=== PATIENT | male | born 1930 | race Caucasian/White ===

== ENCOUNTER → 2016-12-16 | Outpatient (CLI) | payer MEDICARE | END | disposition home or self-care (01) | LOC: CFH 09:59 | PROVIDERS: ATTEND Physician Assistant | DX: M51.27 Other intervertebral disc displacement, lumbosacral region (principal); M51.26 Other intervertebral disc displacement, lumbar region; M48.06 Spinal stenosis, lumbar region; M48.07 Spinal stenosis, lumbosacral region; M43.06 Spondylolysis, lumbar region; M71.38 Other bursal cyst, other site | CPT/HCPCS: 72148 ==

== ENCOUNTER 2017-01-20 09:19 | Inpatient (IN) | payer MEDICARE ==
[~2017-01-20] VITALS: Ht 185.4 cm; Wt 86.0 kg
[2017-01-20] MEDS ORDERED: SODIUM CHLORIDE 0.9% 1,000 ML IV ONE (09:38)
[2017-01-20] MEDS ORDERED: PANTOPRAZOLE 80 MG in SODIUM CHLORIDE 0.9% 50 ML IVPB ONE (09:38)
[2017-01-20 09:54] LABS: HEMOGLOBIN 13.7 g/dL (13.7-18.0); WHITE BLOOD COUNT 6.1 x10^3/uL (3.4-10)
[2017-01-20] MEDS ORDERED: SODIUM CHLORIDE 0.9% 1,000ML IVBOLUS ONE (10:00)
[2017-01-20] MEDS ORDERED: SODIUM CHLORIDE FLUSH 10ML SYR IVF ONE (10:00)
[2017-01-20 10:07] LABS: ASPARTATE AMINO TRANSFERASE 19 U/L (15-37); BLOOD UREA NITROGEN 20 mg/dL (7-18)
[2017-01-20] MEDS ORDERED: OMNIPAQUE 350 MG/ML, 100ML BOTTLE ONE (10:55)
[2017-01-20] MEDS ORDERED: antiacid PO (11:21)
[2017-01-20] MEDS ORDERED: AMLO1CAP6 PO (11:21)
[2017-01-20] MEDS ORDERED: cholesterol med PO (11:21)
[2017-01-20] MEDS: PANTOPRAZOLE 80 MG in SODIUM CHLORIDE 0.9% 100 ML IV SCH ×2 (11:51→13:56)
[2017-01-20] MEDS ORDERED: ACETAMINOPHEN 325 MG TABLET PO PRN (13:00)
[2017-01-20] MEDS ORDERED: POLYETHYLENE GLYCOL 17 GM PACKET PO PRN (13:00)
[2017-01-20] MEDS ORDERED: ONDANSETRON 2MG/ML, 2ML IVPush PRN (13:00)
[2017-01-20] MEDS ORDERED: LABETALOL 5MG/ML, 20ML IVPush PRN (13:00)
[2017-01-20] MEDS ORDERED: HYDROcodone/APAP 5/325 TABLET PO PRN (13:00)
[2017-01-20] MEDS ORDERED: BISACODYL 10 MG SUPP PR PRN (13:00)
[2017-01-20] MEDS ORDERED: DOCUSATE 100 MG CAPSULE PO PRN (13:00)
[2017-01-20 13:07] VITALS: BP 172/76
[2017-01-20] MEDS: SODIUM CHLORIDE 0.9% 1,000 ML IV SCH (13:32)
[2017-01-20] MEDS ORDERED: FENTANYL PF 100 MCG/2ML ONE (13:44)
[2017-01-20] MEDS ORDERED: MIDAZOLAM 1 MG/ML, 5ML ONE (13:44)
[2017-01-20] MEDS ORDERED: PANT20TA3 PO (16:49)
[2017-01-20] MEDS ORDERED: GOLYTELY 4,000ML ORAL.SOL PO ONE (18:00)
[2017-01-20 20:36] VITALS: BP 157/76
[2017-01-20] MEDS ORDERED: AMLODIPINE 5 MG TABLET PO SCH (21:00)
[2017-01-20] MEDS ORDERED: BENAZEPRIL 20 MG TABLET PO SCH (21:00)
[2017-01-21 00:39] LABS: HEMATOCRIT 35.1 % (39.2-51.8); HEMOGLOBIN 11.9 g/dL (13.7-18.0)
[2017-01-21] MEDS: SODIUM CHLORIDE 0.9% 1,000 ML IV SCH (02:22)
[2017-01-21 02:41] VITALS: BP 158/66
[2017-01-21 06:35] LABS: BLOOD UREA NITROGEN 10 mg/dL (7-18)
[2017-01-21 06:38] LABS: ASPARTATE AMINO TRANSFERASE 16 U/L (15-37)
[2017-01-21 06:43] LABS: HEMATOCRIT 38.2 % (39.2-51.8); WHITE BLOOD COUNT 3.8 x10^3/uL (3.4-10)
[2017-01-21 07:28] VITALS: BP 152/76
[2017-01-21] MEDS ORDERED: PANTOPRAZOLE 40 MG IV IVPush SCH (07:30)
[2017-01-21] MEDS ORDERED: MIDAZOLAM 1 MG/ML, 5ML ONE (13:09)
[2017-01-21] MEDS ORDERED: FENTANYL PF 100 MCG/2ML ONE (13:09)
[2017-01-21 14:47] VITALS: BP 169/64
[2017-01-21] MEDS ORDERED: PANT20TA3 PO (15:06)
== END 2017-01-21 20:00 | disposition home or self-care (01) | DRG 378 ==
LOC: ED 09:45 → EDIP 11:25 → 4EST 13:00
PROVIDERS: ADMIT Internal Medicine; ATTEND Internal Medicine
PROC: 0DJ08ZZ Inspection of Upper Intestinal Tract, Via Natural or Artificial Opening Endoscopic (ICD-10-PCS; principal; 2017-01-20 13:59)
PROC: 0DJD8ZZ Inspection of Lower Intestinal Tract, Via Natural or Artificial Opening Endoscopic (ICD-10-PCS; 2017-01-21)
DX: K92.1 Melena (principal); D62 Acute posthemorrhagic anemia; I11.9 Hypertensive heart disease without heart failure; E78.5 Hyperlipidemia, unspecified; K21.9 Gastro-esophageal reflux disease without esophagitis; K57.90 Diverticulosis of intestine, part unspecified, without perforation or abscess without bleeding; E78.00 Pure hypercholesterolemia, unspecified; I78.1 Nevus, non-neoplastic; K31.7 Polyp of stomach and duodenum; K44.9 Diaphragmatic hernia without obstruction or gangrene; K55.20 Angiodysplasia of colon without hemorrhage; M19.90 Unspecified osteoarthritis, unspecified site; Z66 Do not resuscitate; Z79.1 Long term (current) use of non-steroidal anti-inflammatories (NSAID); Z79.82 Long term (current) use of aspirin; Z82.49 Family history of ischemic heart disease and other diseases of the circulatory system; Z85.46 Personal history of malignant neoplasm of prostate; Z86.718 Personal history of other venous thrombosis and embolism; Z87.891 Personal history of nicotine dependence
CPT/HCPCS: 36415; 74177; 80053; 83690; 85014; 85018; 85025; 85610; 86677; 86850; 86900; 93005; 96365; 99152; 99153; J2250; J3010; Q9967; C9113; J7030

== ENCOUNTER 2018-11-25 07:05 | Outpatient (CLI) | payer MEDICARE | END 2018-11-25 23:59 | disposition home or self-care (01) | LOC: LAB 07:05 | PROVIDERS: ATTEND Family Medicine | DX: Z08 Encounter for follow-up examination after completed treatment for malignant neoplasm (principal); E78.2 Mixed hyperlipidemia; R35.0 Frequency of micturition; D64.9 Anemia, unspecified; Z85.46 Personal history of malignant neoplasm of prostate | CPT/HCPCS: 36415; 80053; 80061; 81003; 84443; 85025 ==

== ENCOUNTER 2020-03-09 07:03 | Outpatient (CLI) | payer MEDICARE ==
[~2020-03-09 07:03] MED LIST: AMLO1CAP6 PO; PANT20TA4 PO; antiacid PO; cholesterol med PO
[2020-03-09 07:19] LABS: BASOPHILS % (AUTO) 1 % (0-1); EOSINOPHILS % (AUTO) 3 % (1-7); LYMPHOCYTES % (AUTO) 37 % (22-44); MEAN CORPUSCULAR HEMOGLOBIN 30.7 pg (27.5-34.5); MEAN CORPUSCULAR HGB CONC 33.2 g/dL (33.2-36.2); MEAN PLATELET VOLUME 7.8 fL (7.4-10.4); MONOCYTES % (AUTO) 12 % (2-9); NEUTROPHILS % (AUTO) 48 % (42-75); PLATELET COUNT 153 x10^3/uL (130-400); RED BLOOD COUNT 4.45 x10^6/uL (4.38-5.82); RED CELL DISTRIBUTION WIDTH 14.8 % (9.4-14.8)
[2020-03-09 07:25] LABS: MD NO
[2020-03-09 07:30] LABS: MICROSCOPIC NOT IND
[2020-03-09 07:31] LABS: ALANINE AMINOTRANSFERASE 19 U/L (12-78); ALBUMIN 3.6 g/dL (3.4-5.0); ANION GAP 4 mmol/L (5-15); CALCIUM 8.6 mg/dL (8.5-10.1); CHLORIDE 113 mmol/L (98-107)
[2020-03-09 07:41] LABS: ALKALINE PHOSPHATASE 57 U/L (45-117); BILIRUBIN,TOTAL 0.5 mg/dL (0.2-1.0); CHOL/HDL RATIO 2.1; CHOLESTEROL, TOTAL 149 mg/dL (140-239); CREATININE 0.81 mg/dL (0.7-1.3); HDL CHOL % 47 % (26-37); HDL CHOLESTEROL (DIRECT) 70 mg/dL (40-60); LDL CHOLESTEROL,CALCULATED 72 mg/dL (54-169); TOTAL PROTEIN 6.9 g/dL (6.4-8.2); TRIGLYCERIDES 35 mg/dL (50-200); VLDL CHOLESTEROL 7 mg/dL (0-25)
== END 2020-03-09 23:59 | disposition home or self-care (01) ==
LOC: LAB 07:03
PROVIDERS: ATTEND Family Medicine
DX: Z09 Encounter for follow-up examination after completed treatment for conditions other than malignant neoplasm (principal); C61 Malignant neoplasm of prostate; E78.2 Mixed hyperlipidemia; R35.8 Other polyuria; D64.9 Anemia, unspecified; E03.9 Hypothyroidism, unspecified
CPT/HCPCS: 36415; 80053; 80061; 81003; 84153; 84443; 85025; G0103

== ENCOUNTER 2020-10-23 09:11 | Emergency (ER) | payer MEDICARE ==
[~2020-10-23] VITALS: Ht 185.4 cm; Wt 87.8 kg
--- NOTE | 2020-10-23 10:06 | NUR ---
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
--- NOTE | 2020-10-23 10:34 | NUR ---
PT SLEEPING IN BED. VSS
[2020-10-23 11:33] LABS: BASOPHILS % (AUTO) 1 % (0-1); EOSINOPHILS % (AUTO) 0 % (1-7); LYMPHOCYTES % (AUTO) 8 % (22-44); MEAN CORPUSCULAR HEMOGLOBIN 31.4 pg (27.5-34.5); MEAN CORPUSCULAR HGB CONC 34.7 g/dL (33.2-36.2); MEAN PLATELET VOLUME 8.2 fL (7.4-10.4); MONOCYTES % (AUTO) 7 % (2-9); NEUTROPHILS % (AUTO) 85 % (42-75); PLATELET COUNT 125 x10^3/uL (130-400); RED BLOOD COUNT 4.45 x10^6/uL (4.38-5.82); RED CELL DISTRIBUTION WIDTH 14.7 % (9.4-14.8)
[2020-10-23 11:46] LABS: ALBUMIN 3.6 g/dL (3.4-5.0); ANION GAP 11 mmol/L (5-15); CALCIUM 8.5 mg/dL (8.5-10.1); CHLORIDE 108 mmol/L (98-107)
[2020-10-23 11:53] LABS: ALANINE AMINOTRANSFERASE 23 U/L (12-78); ALKALINE PHOSPHATASE 54 U/L (45-117); BILIRUBIN,TOTAL 0.8 mg/dL (0.2-1.0); CREATININE 0.76 mg/dL (0.7-1.3); TOTAL PROTEIN 6.7 g/dL (6.4-8.2); TROPONIN I 0.034 ng/mL (0.000-0.045)
[2020-10-23 12:02] LABS: MICROSCOPIC INDICATED
[2020-10-23 12:39] VITALS: BP 127/75
== END 2020-10-23 13:15 | disposition home or self-care (01) ==
LOC: ED 10:56
DX: R25.1 Tremor, unspecified (principal); I45.10 Unspecified right bundle-branch block; I10 Essential (primary) hypertension; K21.9 Gastro-esophageal reflux disease without esophagitis; E78.00 Pure hypercholesterolemia, unspecified; Z87.891 Personal history of nicotine dependence; Z88.0 Allergy status to penicillin
CPT/HCPCS: 36415; 80053; 81001; 82962; 84484; 85025; 93005; 99284

== ENCOUNTER 2020-12-02 12:10 | Emergency (ER) | payer MEDICARE ==
[~2020-12-02] VITALS: Ht 185.4 cm; Wt 83.6 kg
--- NOTE | 2020-12-02 12:50 | NUR ---
PT AMBULATORY TO ROOM FROM TRIAGE, CHANGED INTO GOWN, MONITORS IN PLACE. PT C/O PAIN IN HIS HEAD & R EYE RED & SWOLLEN SINCE LAST NIGHT. PT ALSO C/O NOSE RUNNING & CONGESTION AND STATES "I JUST FEEL TERRIBLE". DENIES CP/SOB. PT RECEIVED COVID VACCINE.
[2020-12-02 12:52] VITALS: BP 165/79
--- NOTE | 2020-12-02 13:20 | NUR ---
PA AT BS FOR EVAL
--- NOTE | 2020-12-02 13:31 | NUR ---
ERP AT BS FOR EVAL
[2020-12-02] MEDS ORDERED: FLUORESCEIN OPHTHALMIC 1 MG STRIP ONE (13:38)
[2020-12-02] MEDS ORDERED: PROPARACAINE OPHTH 0.5%, 15ML ONE (13:39)
[2020-12-02] MEDS ORDERED: FLUORESCEIN OPHTHALMIC 1 MG STRIP EACHEYE ONE (14:00)
[2020-12-02] MEDS ORDERED: PROPARACAINE OPHTH 0.5%, 15ML EACHEYE ONE (14:00)
--- NOTE | 2020-12-02 14:14 | NUR ---
Patient given discharge instructions and RX, they have confirmed that they understand the instructions. Patient ambulatory with steady gait.
== END 2020-12-02 14:15 | disposition home or self-care (01) ==
LOC: ED 13:55
DX: B02.9 Zoster without complications (principal); Z20.822 Contact with and (suspected) exposure to COVID-19; E78.00 Pure hypercholesterolemia, unspecified; I10 Essential (primary) hypertension; K21.9 Gastro-esophageal reflux disease without esophagitis; Z88.0 Allergy status to penicillin
CPT/HCPCS: 99283; U0003; U0005